=== PATIENT | female | born 1995 | race African-American/Black ===

== ENCOUNTER 2019-05-01 12:32 | Emergency (ER) | payer OTHER ==
[~2019-05-01] VITALS: Ht 160 cm; Wt 73.0 kg
[2019-05-01 12:39] VITALS: BP 128/84; Ht 160 cm; Wt 73.0 kg
== END 2019-05-01 14:25 | disposition home or self-care (01) ==
LOC: ED 12:32
DX: R51 Headache (principal); R22.0 Localized swelling, mass and lump, head
CPT/HCPCS: J1885